=== PATIENT | male | born 1960 | race Hispanic/Latino ===

== ENCOUNTER 2020-07-07 09:49 | Emergency (ER) | payer MEDICARE ==
[2020-07-07] MEDS ORDERED: TETANUS,DIPH,PERTUSS(ACELL) VACCINE 0.5 ML SYRINGE IM ONE (11:59)
--- NOTE | 2020-07-07 12:08 | Event Note ---
ED Screening Note Date of service: 07/07/20 Time: 12:00 ED Screening Note: 60-year-old male patient with history of autism (nonverbal at baseline) and seizure disorder presents emergency department accompanied by residential supervisor pressing department for evaluation status post fall. Patient reportedly fell forward out of his wheelchair and hit his head. He did not lose consciousness. Unsure of tetanus status. Unsure whether patient is anticoagulated. General: Awake, no acute distress. Neck: Supple. Full range of motion intact. Cardiovascular: Normal peripheral perfusion. Pulmonary: No respiratory distress. Patient is speaking normally without use of accessory muscles. Skin: Superficial abrasions noted to the frontal scalp and dorsum of the hands bilaterally. Neurological: Opens eyes spontaneously. Moves all extremities. Musculoskeletal: Moves all four extremities spontaneously with normal range of motion. Psych: Cooperative. Appropriate mood and affect. CT head/neck indication: (+) head trauma in nonverbal patient of advanced age unable to participate in history I have greeted and performed a focused rapid initial assessment of this patient. A comprehensive ED assessment and evaluation of the patient, analysis of all test results, and completion of the medical decision-making process will be conducted by additional ED providers. This initial assessment/diagnostic orders/clinical plan/treatment(s) is/are subject to change based on patients health status, clinical progression and re-assessment. Further treatment and workup at subsequent clinical provider's discretion. Patient/guardian urged not to elope from the ED as their condition may be serious if not clinically assessed and managed.
--- NOTE | 2020-07-07 12:45 | XRay Report ---
Bilateral hands-3 views on the right and 2 views of the left INDICATION: trauma. COMPARISON: None. IMPRESSION: Imaging of both hands is very suboptimal because the patient is in flexion on most of th e views and overlying bones are present from people attempting to position the patient. The wrists ar e better evaluated but still suboptimal. On the left, the bases of the index through ring fingers are poorly visualized. Cannot exclude fracture in this region if there is point tenderness. Otherwise no gross wrist fracture is identified. No gross hand fracture is identified otherwise as well. Signer Name: Abdiel Oden MD Signed: 07/07/2020 12:40 PM Workstation Name: [id number]
--- NOTE | 2020-07-07 16:12 | Cat Scan Report ---
CT head/brain wo con INDICATION: trauma. TECHNIQUE: Routine CT head without contrast. All CT scans at this location are performed using CT dose reduction for ALARA by means of automated exposure control. COMPARISON: None. FINDINGS: BRAIN / INTRACRANIAL CONTENTS: No acute hemorrhage, brain edema, mass effect, or hydrocephalus. Jessica l contreras-white differentiation. There is stable advanced global brain atrophy for patient of this age. There are stable mild chronic small vessel ischemic change in the cerebral white matter. CALVARIUM/SKULL BASE/CRANIOCERVICAL JUNCTION: No evidence of fracture. ORBITS: Left phthisis bulbi noted. SINUSES / MASTOIDS: Stable postsurgical change from left mastoidectomy. ADDITIONAL FINDINGS: None. IMPRESSION: 1. No acute intracranial abnormality. No adverse change from the prior exam. Signer Name: Chino Coelho MD Signed: 07/07/2020 4:08 PM Workstation Name: [id number]
--- NOTE | 2020-07-07 16:14 | Cat Scan Report ---
CT CERVICAL SPINE WITHOUT CONTRAST INDICATION: trauma. TECHNIQUE: Axial CT images of the spine were obtained. Sagittal and coronal reformatted images were produced. Al l CT scans at this location are performed using CT dose reduction for ALARA by means of automated exp osure control. COMPARISON: None available. FINDINGS: ACUTE FRACTURE(S) OR SUBLUXATION: None. SPINAL DEGENERATIVE CHANGES: There are bridging anterior osteophytes from C5 through C7. PARASPINAL SOFT TISSUES: No soft tissue swelling or other acute abnormalities. ADDITIONAL FINDINGS: No significant additional findings. IMPRESSION: 1. No acute fracture or subluxation in the spine in neutral position. Signer Name: Chino Coelho MD Signed: 07/07/2020 4:09 PM Workstation Name: [id number]
[2020-07-07] MEDS ORDERED: NEOMY 3.5 MG/BACIT 400 UNITS/POLY B 5000 UNITS/GM OINT PACKET TP STA (16:37)
--- NOTE | 2020-07-07 16:37 | Emergency Department Report ---
ED General Adult HPI - General Chief complaint: Head Injury Stated complaint: HEAD INJURY/OTHER BRUISES Time Seen by Provider: 07/07/20 16:24 Source: family Mode of arrival: Wheelchair Limitations: Language Barrier, Other - History of Present Illness Initial comments: 60-year-old male patient with history of autism (nonverbal at baseline) and seizure disorder presents emergency department accompanied by residential leather products supervisor for evaluation status post fall. Patient reportedly fell forward out of his wheelchair and hit his head. He did not lose consciousness. Unsure of tetanus status. Unsure whether patient is anticoagulated. He denies patient having any changes in his behavior or expression of severe pain -: Sudden - Related Data Home Medications Medication Instructions Recorded Confirmed Last Taken Acetaminophen 325 tab PO Q4HR PRN 08/04/15 08/04/15 Unknown Calcium Carbonate [Calcium] 500 mg PO DAILY 08/04/15 08/04/15 Unknown Cholecalciferol (Vitamin D3) 5,000 unit PO QWEEK 08/04/15 08/04/15 Unknown [Vitamin D3] Levothyroxine [Synthroid] 25 mcg PO QAM 08/04/15 08/04/15 Unknown Multivit &Minerals/Ferrous Fum 1 tab PO QDAY 08/04/15 08/04/15 Unknown Psyllium Husk/Aspartame [Metamucil 1 packet PO QHS 08/04/15 08/04/15 Unknown Fiber Singles Packet] polyethylene glycoL 3350 [Miralax 17 gm PO QHS 08/04/15 08/04/15 Unknown 3350] Previous Rx's Medication Instructions Recorded Last Taken Type Aspirin [Aspirin BABY CHEW TAB] 81 mg PO QDAY tab.chew 08/07/15 Unknown Rx AtorvaSTATin 10 mg PO QHS tablet 08/07/15 Unknown Rx Famotidine [Pepcid] 20 mg PO BID tablet 08/07/15 Unknown Rx Ipratropium/Albuterol Sulfate 1 ampul IH TIDRT ampul.neb 08/07/15 Unknown Rx [DUONEB *Not for PRN Use*] Metoprolol [Lopressor TAB] 12.5 mg PO BID tablet 08/07/15 Unknown Rx VALPROIC ACID Liq [DepaKENE Liq] 250 mg FEEDTUBE Q12HR oral.liqd 08/07/15 Unknown Rx guaiFENesin [Robitussin] 200 mg PO Q4HR oral.liqd 08/07/15 Unknown Rx levETIRAcetam [Keppra ORAL LIQ] 500 mg PO BID #1 bottle 08/07/15 Unknown Rx cephALEXin [Keflex] 500 mg PO Q8HR #30 cap 06/17/18 Unknown Rx diphenhydrAMINE [Benadryl CAP] 25 mg PO Q6HR PRN #20 capsule 06/17/18 Unknown Rx methylPREDNISolone [Medrol] 4 mg PO DAILY #21 tab.ds.pk 06/17/18 Unknown Rx raNITIdine HCl [Zantac] 150 mg PO Q12H #20 tablet 06/17/18 Unknown Rx Mupirocin [Bactroban 2% OINT] 1 applic TP TID 7 Days #1 tube 07/07/20 Unknown Rx Allergies Allergy/AdvReac Type Severity Reaction Status Date / Time chlorpheniramine maleate Allergy Swelling Verified 07/07/20 09:58 [From Actifed Cold-Allergy] phenylephrine HCl Allergy Swelling Verified 07/07/20 09:58 [From Actifed Cold-Allergy] pseudoephedrine HCl Allergy Swelling Verified 07/07/20 09:58 [From Actifed Cold-Allergy] triprolidine HCl Allergy Swelling Verified 07/07/20 09:58 [From Actifed Cold-Allergy] ED Review of Systems ROS: Stated complaint: HEAD INJURY/OTHER BRUISES Other details as noted in HPI Comment: Unobtainable due to pts medical conditions ED Past Medical Hx - Past Medical History Hx Hypertension: Yes Hx Heart Attack/AMI: Yes Hx Congestive Heart Failure: No Hx Diabetes: No Hx Deep Vein Thrombosis: No Hx Seizures: Yes (controlled with meds) Hx Asthma: No Hx COPD: No 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 hypothyroidism. non-verbal - Surgical History Hx Pacemaker: No Hx Internal Defibrillator: No Additional Surgical History: unknown - Social History Smoking Status: Never Smoker Substance Use Type: None - Medications Home Medications: Home Medications Medication Instructions Recorded Confirmed Last Taken Type Acetaminophen 325 tab PO Q4HR PRN 08/04/15 08/04/15 Unknown History Calcium Carbonate [Calcium] 500 mg PO DAILY 08/04/15 08/04/15 Unknown History Cholecalciferol (Vitamin D3) 5,000 unit PO QWEEK 08/04/15 08/04/15 Unknown History [Vitamin D3] Levothyroxine [Synthroid] 25 mcg PO QAM 08/04/15 08/04/15 Unknown History Multivit &Minerals/Ferrous Fum 1 tab PO QDAY 08/04/15 08/04/15 Unknown History Psyllium Husk/Aspartame [Metamucil 1 packet PO QHS 08/04/15 08/04/15 Unknown History Fiber Singles Packet] polyethylene glycoL 3350 [Miralax 17 gm PO QHS 08/04/15 08/04/15 Unknown History 3350] Aspirin [Aspirin BABY CHEW TAB] 81 mg PO QDAY tab.chew 08/07/15 Unknown Rx AtorvaSTATin 10 mg PO QHS tablet 08/07/15 Unknown Rx Famotidine [Pepcid] 20 mg PO BID tablet 08/07/15 Unknown Rx Ipratropium/Albuterol Sulfate 1 ampul IH TIDRT ampul.neb 08/07/15 Unknown Rx [DUONEB *Not for PRN Use*] Metoprolol [Lopressor TAB] 12.5 mg PO BID tablet 08/07/15 Unknown Rx VALPROIC ACID Liq [DepaKENE Liq] 250 mg FEEDTUBE Q12HR oral.liqd 08/07/15 Unknown Rx guaiFENesin [Robitussin] 200 mg PO Q4HR oral.liqd 08/07/15 Unknown Rx levETIRAcetam [Keppra ORAL LIQ] 500 mg PO BID #1 bottle 08/07/15 Unknown Rx cephALEXin [Keflex] 500 mg PO Q8HR #30 cap 06/17/18 Unknown Rx diphenhydrAMINE [Benadryl CAP] 25 mg PO Q6HR PRN #20 capsule 06/17/18 Unknown Rx methylPREDNISolone [Medrol] 4 mg PO DAILY #21 tab.ds.pk 06/17/18 Unknown Rx raNITIdine HCl [Zantac] 150 mg PO Q12H #20 tablet 06/17/18 Unknown Rx Mupirocin [Bactroban 2% OINT] 1 applic TP TID 7 Days #1 tube 07/07/20 Unknown Rx ED Physical Exam - General Limitations: Other General appearance: alert, in no apparent distress - Head Head exam: Present: other (Large abrasion noted to frontal scalp with minimal active bleeding; no obvious deformities are noted) - Expanded Head Exam Expanded Head exam: Absent: hematoma, racoon eyes, marques's sign - Eye Eye exam: Present: normal appearance, PERRL. Absent: scleral icterus - Neck Neck exam: Present: normal inspection - Respiratory Respiratory exam: Absent: respiratory distress - Cardiovascular Cardiovascular Exam: Present: regular rate - GI/Abdominal GI/Abdominal exam: Present: soft. Absent: tenderness, other (No bruising noted) - Extremities Exam Extremities exam: Present: other (Abrasion noted atop right dorsal aspect of hand without obvious bruising, swelling, or bony deformity) - Neurological Exam Neurological exam: Present: alert - Psychiatric Psychiatric exam: Present: normal affect, normal mood, other - Skin Skin exam: Present: warm, dry. Absent: ecchymosis ED Course Vital Signs 07/07/20 07/07/20 09:58 16:42 Temperature 97.9 F Pulse Rate 86 79 Respiratory 20 Rate Blood Pressure 158/122 112/81 O2 Sat by Pulse 98 90 Oximetry ED Medical Decision Making - Radiology Data Radiology results: report reviewed CT head/brain wo con INDICATION: trauma. TECHNIQUE: Routine CT head without contrast. All CT scans at this location are performed using CT dose reduction for [employer] by means of automated exposure control. COMPARISON: None. FINDINGS: BRAIN / INTRACRANIAL CONTENTS: No acute hemorrhage, brain edema, mass effect, or hydrocephalus. Normal contreras-white differentiation. There is stable advanced global brain atrophy for patient of this age. There are stable mild chronic small vessel ischemic change in the cerebral white matter. CALVARIUM/SKULL BASE/CRANIOCERVICAL JUNCTION: No evidence of fracture. ORBITS: Left phthisis bulbi noted. SINUSES / MASTOIDS: Stable postsurgical change from left mastoidectomy. ADDITIONAL FINDINGS: None. IMPRESSION: 1. No acute intracranial abnormality. No adverse change from the prior exam. CT CERVICAL SPINE WITHOUT CONTRAST INDICATION: trauma. TECHNIQUE: Axial CT images of the spine were obtained. Sagittal and coronal reformatted images were produced. All CT scans at this location are performed using CT dose reduction for ALARA by means of automated exposure control. COMPARISON: None available. FINDINGS: ACUTE FRACTURE(S) OR SUBLUXATION: None. SPINAL DEGENERATIVE CHANGES: There are bridging anterior osteophytes from C5 through C7. PARASPINAL SOFT TISSUES: No soft tissue swelling or other acute abnormalities. ADDITIONAL FINDINGS: No significant additional findings. IMPRESSION: 1. No acute fracture or subluxation in the spine in neutral position. cc: NEHEMIAH SMART Fluoro Time In Minutes: Bilateral hands-3 views on the right and 2 views of the left INDICATION: trauma. COMPARISON: None. IMPRESSION: Imaging of both hands is very suboptimal because the patient is in flexion on most of the views and overlying bones are present from people attempting to position the patient. The wrists are better evaluated but still suboptimal. On the left, the bases of the index through ring fingers are poorly visualized. Cannot exclude fracture in this region if there is point tenderness. Otherwise no gross wrist fracture is identified. No gross hand fracture is identified otherwise as well. - Medical Decision Making 60-year-old male patient with history of autism (nonverbal at baseline) and seizure disorder presents emergency department accompanied by residential leather products supervisor for evaluation status post fall. Patient reportedly fell forward out of his wheelchair and hit his head. He did not lose consciousness. Unsure of tetanus status. Unsure whether patient is anticoagulated. He denies patient having any changes in his behavior or expression of severe pain CT head and neck are normal. X-ray of hand had difficulty ruling out fracture due to positioning of patient's hand; no significant swelling, bruising, or bony tenderness of the hand noted on exam. Wounds were cleaned, Neosporin placed, with sterile dressing on each wound. Discussed with youth support worker signs and symptoms that should prompt immediate return to the emergency department in detail, he states understanding. Patient to follow-up with his primary care doctor in 3 to 5 days. Critical care attestation.: If time is entered above; I have spent that time in minutes in the direct care of this critically ill patient, excluding procedure time. ED Disposition Clinical Impression: Head injury Qualifiers: Encounter type: initial encounter Qualified Code(s): S09.90XA - Unspecified injury of head, initial encounter Abrasion of right hand Qualifiers: Encounter type: initial encounter Qualified Code(s): S60.511A - Abrasion of right hand, initial encounter Disposition: TO HOME OR SELFCARE Is pt being admited?: No Condition: Stable Instructions: Head Injury, Adult, Abrasion Prescriptions: Mupirocin [Bactroban 2% OINT] 1 applic TP TID 7 Days #1 tube Referrals: PRIMARY CARE, [Primary Care Provider] - 2-3 Days
[2020-07-07 17:06] VITALS: BP 112/81
== END 2020-07-07 17:17 | disposition home or self-care (01) ==
LOC: ED 09:49
DX: S09.90XA Unspecified injury of head, initial encounter (principal); I10 Essential (primary) hypertension; I25.2 Old myocardial infarction; R56.9 Unspecified convulsions; Z79.899 Other long term (current) drug therapy; Z88.8 Allergy status to other drugs, medicaments and biological substances; W05.0XXA Fall from non-moving wheelchair, initial encounter; Y93.89 Activity, other specified; Y92.89 Other specified places as the place of occurrence of the external cause; Y99.8 Other external cause status
CPT/HCPCS: 70450; 72125; 73120; 90471; 90715; 99284; A6250